=== PATIENT | female | born 1960 | race African-American/Black ===

== ENCOUNTER 2017-01-19 16:56 | Emergency (ER) | payer MEDICAID ==
[~2017-01-19] VITALS: Ht 167.6 cm; Wt 72.0 kg
[2017-01-19 17:00] VITALS: BP 127/80
[2017-01-19] MEDS ORDERED: METROPOLOL (17:06)
[2017-01-19] MEDS ORDERED: AMLO2.5T45 PO (17:06)
[2017-01-19] MEDS ORDERED: HYDR12.529 PO (17:07)
== END 2017-01-19 22:45 | disposition left against medical advice (07) ==
LOC: ER 16:56
DX: H61.23 Impacted cerumen, bilateral (principal); R51 Headache; Z53.21 Procedure and treatment not carried out due to patient leaving prior to being seen by health care provider